=== PATIENT | female | born 1990 | race Asian ===

== ENCOUNTER 2019-04-14 17:51 | Emergency (ER) | payer MEDICAID ==
[~2019-04-14] VITALS: Ht 165.1 cm; Wt 77.1 kg
--- NOTE | 2019-04-14 18:00 | NUR ---
receved pt 29 yrs old female c/o sore throt for 2 days unable took and coughing for [address] rush to x ray no distress hob elevated
[2019-04-14 18:56] LABS: *MONOTEST NEGATIVE (NEGATIVE)
--- NOTE | 2019-04-14 19:00 | NUR ---
dineses sob or respratory distress at this time
--- NOTE | 2019-04-14 19:54 | NUR ---
Patient discharged to home in stable conditon. Written and verbal after care instructions given. Patient verbalizes understanding of instructions. patient alert and oriente x4. Patient self ambulatory with steady gait. Exit care and personal belongings taken with patient at discharge.
[2019-04-14 19:55] VITALS: BP 112/66
== END 2019-04-14 19:57 | disposition home or self-care (01) ==
LOC: ER 17:55
DX: J02.8 Acute pharyngitis due to other specified organisms (principal); B97.89 Other viral agents as the cause of diseases classified elsewhere
CPT/HCPCS: 36415; 70360; 86308; 86403; 87070; A4663

== ENCOUNTER 2019-04-17 11:57 | Emergency (ER) | payer MEDICAID ==
[~2019-04-17] VITALS: Ht 165.1 cm; Wt 77.1 kg
[2019-04-17] MEDS ORDERED: AZITHROMYCIN 250 MG TABLET ONE (12:44)
[2019-04-17] MEDS ORDERED: AZITHROMYCIN 250 MG TABLET PO ONE (12:45)
--- NOTE | 2019-04-17 12:46 | NUR ---
Patient discharged to home in stable conditon. Written and verbal after care instructions given. Patient verbalizes understanding of instructions.
[2019-04-17] MEDS ORDERED: HYDROMORPHONE 1 MG/1 ML DISP.SYRIN IV ONE (13:00)
[2019-04-17] MEDS ORDERED: diphenhydrAMINE 50 MG/1 ML VIAL IV ONE (13:00)
[2019-04-17] MEDS ORDERED: ONDANSETRON 4 MG/2 ML VIAL IV ONE (13:00)
== END 2019-04-17 12:51 | disposition home or self-care (01) ==
LOC: ER 11:58
DX: J06.9 Acute upper respiratory infection, unspecified (principal)
CPT/HCPCS: A4663; Q0144

== ENCOUNTER 2020-05-27 10:04 | Emergency (ER) | payer MEDICAID ==
[~2020-05-27] VITALS: Ht 167.6 cm; Wt 81.6 kg
[2020-05-27] MEDS ORDERED: TDAP DIPH,PERTUSS,TET VAC/PF 0.5 ML DISP.SYRIN IM ONE ×2 (10:45→11:28)
[2020-05-27] MEDS ORDERED: LIDOCAINE HCL 2% 20 ML VIAL TP ONE (10:45)
[2020-05-27] MEDS ORDERED: LIDOCAINE HCL 2% 20 ML VIAL ONE (10:54)
--- NOTE | 2020-05-27 11:21 | NUR ---
CHAPERONED MD WITH THE CYST I@D, PT TOLERATED WELL.
--- NOTE | 2020-05-27 11:32 | NUR ---
Patient discharged to home in stable condition. Written and verbal after care instructions given. Patient verbalizes understanding of instructions. Stressed follow up or return to ER for worsening s/s.
== END 2020-05-27 11:34 | disposition home or self-care (01) ==
LOC: ER 10:04
DX: N75.1 Abscess of Bartholin's gland (principal)
CPT/HCPCS: 56420; 90471; 90715; 99283; J3490; A4217; A4663

== ENCOUNTER 2020-08-02 20:24 | Emergency (ER) | payer MEDICAID ==
[~2020-08-02] VITALS: Ht 162.6 cm; Wt 77.1 kg
--- NOTE | 2020-08-02 20:58 | NUR ---
Pt provided urine sample, sent to lab.
[2020-08-02] MEDS ORDERED: FLUCONAZOLE 100 MG TABLET PO ONE (21:15)
[2020-08-02] MEDS ORDERED: ONDANSETRON ODT 4 MG TAB.RAPDIS SL ONE (21:15)
[2020-08-02] MEDS ORDERED: AZITHROMYCIN 250 MG TABLET PO ONE (21:15)
[2020-08-02] MEDS ORDERED: CEFTRIAXONE 1 G VIAL IM ONE (21:15)
[2020-08-02] MEDS ORDERED: ONDANSETRON ODT 4 MG TAB.RAPDIS ONE (21:20)
[2020-08-02] MEDS ORDERED: AZITHROMYCIN 250 MG TABLET ONE (21:20)
[2020-08-02] MEDS ORDERED: FLUCONAZOLE 100 MG TABLET ONE (21:21)
[2020-08-02] MEDS ORDERED: CEFTRIAXONE 1 G VIAL ONE (21:21)
--- NOTE | 2020-08-02 21:33 | NUR ---
Dr. Quinteros performing pelvic exam chaperroned by MARTHA Busby.
--- NOTE | 2020-08-02 21:33 | NUR ---
Michael reyes in [facility] - 08/02/20 at 2144 by CLAUDETTE Patient performing pelvic exam with female chapperone at bedside.
[2020-08-02 22:50] VITALS: BP 132/80
--- NOTE | 2020-08-02 22:50 | NUR ---
Patient discharged to home in stable condition. Written and verbal after care instructions given. Patient verbalizes understanding of instructions. Stressed follow up or return to ER for worsening s/s. Patient ambulates without difficulty, left with all belongings.
== END 2020-08-02 22:50 | disposition home or self-care (01) ==
LOC: ER 20:29
DX: N89.8 Other specified noninflammatory disorders of vagina (principal); Z20.2 Contact with and (suspected) exposure to infections with a predominantly sexual mode of transmission
CPT/HCPCS: 87086; 87210; 87491; 96372; 99284; J0696; A4663; Q0144; Q0162

== ENCOUNTER 2020-08-19 10:41 | Emergency (ER) | payer MEDICAID ==
[~2020-08-19] VITALS: Ht 162.6 cm; Wt 77.1 kg
[2020-08-19 11:22] LABS: *BILIRUBIN,URIN NEGATIVE (NEGATIVE); *BLOOD, URINE NEGATIVE (NEGATIVE); *CLARITY,URINE CLEAR (CLEAR); *COLOR,URINE YELLOW (YELLOW); *KETONES,URINE NEGATIVE (NEGATIVE); *UROBILINOGEN,URINE 0.2 E.U./dl (NORMAL); LEUKOCYTE ESTERASE ,URINE NEGATIVE (NEGATIVE); NITRITE, URINE NEGATIVE (NEGATIVE); UGLUCOSE NEGATIVE (NEGATIVE)
[2020-08-19 11:32] LABS: *URINE HCG, QUAL NEG (NEGATIVE)
[2020-08-19] MEDS ORDERED: DOXY100T2 PO (13:14)
[2020-08-19] MEDS ORDERED: FLUC150T PO (13:14)
[2020-08-19] MEDS ORDERED: CEFTRIAXONE 1 G VIAL IM ONE (13:15)
[2020-08-19] MEDS ORDERED: LIDOCAINE HCL 1% 20 ML VIAL ONE (13:19)
[2020-08-19] MEDS ORDERED: CEFTRIAXONE 1 G VIAL ONE (13:19)
== END 2020-08-19 13:29 | disposition home or self-care (01) ==
LOC: ER 10:41
DX: N76.0 Acute vaginitis (principal)
CPT/HCPCS: 36415; 81003; 84703; 86592; 87210; 87491; 96372; 99283; J0696; J3490; A4663

== ENCOUNTER 2020-08-26 02:09 | Emergency (ER) | payer MEDICAID ==
[~2020-08-26] VITALS: Ht 162.6 cm; Wt 86.2 kg
[~2020-08-26 02:09] MED LIST: DOXY100T2 PO; FLUC150T PO
--- NOTE | 2020-08-26 02:15 | NUR ---
Pt presents to ER with c/o of urinary frequency. Placed in Bed 5A. No acute distress noted, seen and examined by Dr. Lea. Urine collected and sent to lab.
[2020-08-26 02:26] LABS: *BILIRUBIN,URIN NEGATIVE (NEGATIVE); *BLOOD, URINE NEGATIVE (NEGATIVE); *CLARITY,URINE CLEAR (CLEAR); *COLOR,URINE YELLOW (YELLOW); *KETONES,URINE NEGATIVE (NEGATIVE); *UROBILINOGEN,URINE 0.2 E.U./dl (NORMAL); LEUKOCYTE ESTERASE ,URINE NEGATIVE (NEGATIVE); NITRITE, URINE NEGATIVE (NEGATIVE); PH,URINE 5.5 (5.0-8.0); UGLUCOSE NEGATIVE (NEGATIVE)
[2020-08-26 02:35] LABS: *URINE HCG, QUAL NEGATIVE (NEGATIVE)
[2020-08-26 02:56] LABS: BASOPHILS % (AUTO) 0.5 % (0.0-2.0); EOSINOPHILS # (AUTO) 0.3 K/uL (0.0-0.7); EOSINOPHILS % (AUTO) 2.7 % (0.0-7.0); HEMATOCRIT 41.1 % (31.2-41.9); HEMOGLOBIN 13.5 g/dL (10.9-14.3); LYMPHOCYTES # (AUTO) 3.5 K/uL (20.0-40.0); LYMPHOCYTES % (AUTO) 35.6 % (20.5-51.5); MEAN CORPUSCULAR HEMOGLOBIN 29.4 uug (24.7-32.8); MEAN CORPUSCULAR HGB CONC 33 g/dL (32.3-35.6); MEAN CORPUSCULAR VOLUME 89.4 fL (75.5-95.3); MONOCYTES # (AUTO) 0.7 K/uL (2.0-10.0); MONOCYTES % (AUTO) 7.3 % (0.0-11.0); NEUTROPHILS # (AUTO) 5.3 K/uL (1.8-8.9); NEUTROPHILS % (AUTO) 53.9 % (38.5-71.5); PLATELET COUNT (AUTO) 205 K/uL (179-408); RED BLOOD CELL COUNT(AUTO) 4.59 MIL/uL (3.63-4.92); WHITE BLOOD COUNT (AUTO) 9.8 K/uL (3.8-11.8)
[2020-08-26 03:06] LABS: BILIRUBIN,DIRECT 0.1 mg/dL (0.0-0.2); BILIRUBIN,TOTAL 0.2 mg/dL (0.2-1.0); CREATININE 0.8 mg/dL (0.6-1.3); POTASSIUM 3.8 mmol/L (3.5-5.1); TOTAL PROTEIN, SERUM 7.4 g/dL (6.4-8.2)
[2020-08-26] MEDS ORDERED: SULF-11 PO (04:28)
[2020-08-26] MEDS: SULFAMETH/TRIMETH 800/160 MG TABLET PO ONE (04:31)
[2020-08-26] MEDS ORDERED: SULFAMETH/TRIMETH 800/160 MG TABLET ONE (04:35)
--- NOTE | 2020-08-26 04:35 | NUR ---
Per Dr. Lea, pt stable for discharge. DC instructions and rx given and reviewed with patient. Verbalized understanding. Left ER in stable condition.
== END 2020-08-26 04:37 | disposition home or self-care (01) ==
LOC: ER 02:14
DX: N39.0 Urinary tract infection, site not specified (principal); E78.00 Pure hypercholesterolemia, unspecified
CPT/HCPCS: 36415; 83690; 84703; 85025; 85730; A4663

== ENCOUNTER 2020-09-06 13:21 | Emergency (ER) | payer MEDICAID ==
[~2020-09-06] VITALS: Ht 162.6 cm; Wt 88.5 kg
[~2020-09-06 13:21] MED LIST changes: +SULF-11 PO
--- NOTE | 2020-09-06 13:32 | NUR ---
at bedside for assessment
[2020-09-06 14:10] LABS: *URINE HCG, QUAL NEG (NEGATIVE)
[2020-09-06] MEDS ORDERED: KETOROLAC TROMETHAMINE 15 MG INJ ONE ×2 (14:14→15:38)
[2020-09-06] MEDS ORDERED: PHENAZOPYRIDINE HCL 100 MG TABLET PO ONE (14:15)
[2020-09-06] MEDS ORDERED: PHENAZOPYRIDINE HCL 100 MG TABLET ONE (14:15)
[2020-09-06] MEDS ORDERED: KETOROLAC TROMETHAMINE 15 MG INJ IM ONE (14:15)
[2020-09-06 14:16] LABS: *BILIRUBIN,URIN NEGATIVE (NEGATIVE); *BLOOD, URINE NEGATIVE (NEGATIVE); *CLARITY,URINE CLEAR (CLEAR); *COLOR,URINE YELLOW (YELLOW); *KETONES,URINE 1+ (NEGATIVE); *UROBILINOGEN,URINE 0.2 E.U./dl (NORMAL); LEUKOCYTE ESTERASE ,URINE TRACE (NEGATIVE); NITRITE, URINE NEGATIVE (NEGATIVE); PH,URINE 5.5 (5.0-8.0); UGLUCOSE NEGATIVE (NEGATIVE)
--- NOTE | 2020-09-06 14:27 | NUR ---
Patient being transported to radiology for CT
[2020-09-06 14:28] LABS: BASOPHILS % (AUTO) 0.4 % (0.0-2.0); EOSINOPHILS # (AUTO) 0.2 K/uL (0.0-0.7); EOSINOPHILS % (AUTO) 1.8 % (0.0-7.0); HEMATOCRIT 43.4 % (31.2-41.9); HEMOGLOBIN 14.8 g/dL (10.9-14.3); LYMPHOCYTES % (AUTO) 28.6 % (20.5-51.5); MEAN CORPUSCULAR HEMOGLOBIN 30.3 uug (24.7-32.8); MEAN CORPUSCULAR HGB CONC 34 g/dL (32.3-35.6); MEAN CORPUSCULAR VOLUME 88.8 fL (75.5-95.3); MONOCYTES # (AUTO) 0.6 K/uL (2.0-10.0); NEUTROPHILS # (AUTO) 6.5 K/uL (1.8-8.9); NEUTROPHILS % (AUTO) 63.2 % (38.5-71.5); PLATELET COUNT (AUTO) 229 K/uL (179-408); RED BLOOD CELL COUNT(AUTO) 4.89 MIL/uL (3.63-4.92); WHITE BLOOD COUNT (AUTO) 10.4 K/uL (3.8-11.8)
[2020-09-06 14:36] LABS: CREATININE 0.8 mg/dL (0.6-1.3); POTASSIUM 3.6 mmol/L (3.5-5.1)
[2020-09-06 14:42] LABS: BILIRUBIN,DIRECT 0.1 mg/dL (0.0-0.2); BILIRUBIN,TOTAL 0.5 mg/dL (0.2-1.0); TOTAL PROTEIN, SERUM 8.3 g/dL (6.4-8.2)
--- NOTE | 2020-09-06 14:44 | NUR ---
Patient returned from Radiology department
[2020-09-06] MEDS ORDERED: PHEN-704 PO (15:30)
--- NOTE | 2020-09-06 15:56 | NUR ---
Patient discharged to home in stable condition. able to amblate with steady gait. Written and verbal after care instructions given. took all belongings. No signs of acute distress. Patient verbalizes understanding of instructions. Stressed follow up or return to ER for worsening s/s.
[2020-09-06] MEDS ORDERED: KETOROLAC TROMETHAMINE 15 MG INJ IVP ONE (16:00)
--- NOTE | 2020-09-06 16:08 | NUR ---
Gave pt sandwich tray.
--- NOTE | 2020-09-06 16:09 | NUR ---
Patient discharged to home in stable condition. Able to ambulate with steady gait. took all belongings, no signs of acute distress. Written and verbal after care instructions given. Patient verbalizes understanding of instructions. Stressed follow up or return to ER for worsening s/s.
[2020-09-06 16:11] VITALS: BP 120/79
[2020-09-06 16:24] LABS: BACTERIA,URINE FEW /HPF (NONE SEEN); RBC,URINE 0-3 /HPF (0-3)
[2020-09-06 16:25] LABS: SQUAMOUS EPITHELIAL CELL,UR MODERATE /HPF (NONE SEEN)
== END 2020-09-06 16:00 | disposition home or self-care (01) ==
LOC: ER 13:21
DX: R10.2 Pelvic and perineal pain (principal); R39.15 Urgency of urination; R30.0 Dysuria
CPT/HCPCS: 36415; 74176; 80048; 80076; 81001; 84703; 85025; 87086; 96374; 99284; J1885; A4663

== ENCOUNTER 2020-09-13 10:50 | Emergency (ER) | payer MEDICAID ==
[~2020-09-13] VITALS: Ht 162.6 cm; Wt 81.6 kg
[~2020-09-13 10:50] MED LIST changes: +PHEN-704 PO
[2020-09-13 11:18] LABS: *BILIRUBIN,URIN NEGATIVE (NEGATIVE); *BLOOD, URINE NEGATIVE (NEGATIVE); *CLARITY,URINE CLEAR (CLEAR); *COLOR,URINE YELLOW (YELLOW); *KETONES,URINE NEGATIVE (NEGATIVE); *UROBILINOGEN,URINE 0.2 E.U./dl (NORMAL); LEUKOCYTE ESTERASE ,URINE TRACE (NEGATIVE); NITRITE, URINE NEGATIVE (NEGATIVE); PH,URINE 7.5 (5.0-8.0); UGLUCOSE NEGATIVE (NEGATIVE)
[2020-09-13 11:22] LABS: *URINE HCG, QUAL NEGATIVE (NEGATIVE)
[2020-09-13 11:31] LABS: BACTERIA,URINE FEW /HPF (NONE SEEN); RBC,URINE 0-3 /HPF (0-3); SQUAMOUS EPITHELIAL CELL,UR MODERATE /HPF (NONE SEEN); URINE AMORPHOUS PHOSPHATES FEW /HPF
[2020-09-13] MEDS ORDERED: CEPH500C2 PO (11:36)
[2020-09-13] MEDS ORDERED: CEphaleXIN 500 MG CAPSULE PO ONE (11:45)
--- NOTE | 2020-09-13 11:47 | NUR ---
Patient discharged to home in stable condition. Written and verbal after care instructions given. Patient verbalizes understanding of instructions. Stressed follow up or return to ER for worsening s/s. Patient instructed to complete entire course of prescribed antibiotic.
[2020-09-13 11:49] VITALS: BP 121/75
[2020-09-13] MEDS ORDERED: CEphaleXIN 500 MG CAPSULE ONE (11:50)
== END 2020-09-13 11:43 | disposition home or self-care (01) ==
LOC: ER 10:50
DX: N39.0 Urinary tract infection, site not specified (principal); E78.5 Hyperlipidemia, unspecified
CPT/HCPCS: 84703; 87086; A4663

== ENCOUNTER 2020-10-04 21:13 | Emergency (ER) | payer MEDICAID ==
[~2020-10-04] VITALS: Ht 162.6 cm; Wt 81.6 kg
[~2020-10-04 21:13] MED LIST changes: +CEPH500C2 PO
[2020-10-04 21:40] LABS: *BILIRUBIN,URIN NEGATIVE (NEGATIVE); *BLOOD, URINE NEGATIVE (NEGATIVE); *COLOR,URINE YELLOW (YELLOW); *KETONES,URINE NEGATIVE (NEGATIVE); *UROBILINOGEN,URINE 0.2 E.U./dl (NORMAL); LEUKOCYTE ESTERASE ,URINE NEGATIVE (NEGATIVE); NITRITE, URINE NEGATIVE (NEGATIVE); PH,URINE 7.5 (5.0-8.0); UGLUCOSE NEGATIVE (NEGATIVE)
[2020-10-04 21:43] LABS: *CLARITY,URINE HAZY (CLEAR); *URINE HCG, QUAL NEGATIVE (NEGATIVE)
[2020-10-04 21:55] LABS: BACTERIA,URINE NONE SEEN /HPF (NONE SEEN); RBC,URINE 0-3 /HPF (0-3); SQUAMOUS EPITHELIAL CELL,UR FEW /HPF (NONE SEEN); URINE AMORPHOUS PHOSPHATES FEW /HPF; WBC,URINE 0-3 /HPF (0-3)
--- NOTE | 2020-10-04 22:09 | NUR ---
Dr. Quinteros at bedside for MSE, chapperoned by Marija THOMAS Nurse Glove Machine Operator.
--- NOTE | 2020-10-04 22:23 | NUR ---
Patient discharged to home in stable condition. Written and verbal after care instructions given. Patient verbalizes understanding of instructions. Stressed follow up or return to ER for worsening s/s. Patient out of ER with steady gait, no acute signs of distress, VSS, all belongings taken, provided with copies of lab results.
[2020-10-04 22:24] VITALS: BP 119/70
== END 2020-10-04 22:25 | disposition home or self-care (01) ==
LOC: ER 21:13
DX: R30.0 Dysuria (principal); G89.29 Other chronic pain; E78.5 Hyperlipidemia, unspecified; Z87.74 Personal history of (corrected) congenital malformations of heart and circulatory system; R23.8 Other skin changes
CPT/HCPCS: 84703; 87086; A4663

== ENCOUNTER 2021-03-23 19:56 | Emergency (ER) | payer BC, MEDICAID ==
[~2021-03-23] VITALS: Ht 162.6 cm; Wt 81.6 kg
--- NOTE | 2021-03-23 20:10 | NUR ---
PATIENT WAS MSE BY DR LEBRON IN ROOM 05A.
[2021-03-23] MEDS ORDERED: IV NORMAL SALINE 1000 ML BAG IV ONE (20:15)
[2021-03-23] MEDS ORDERED: ONDANSETRON 4 MG/2 ML VIAL IV ONE (20:15)
[2021-03-23] MEDS ORDERED: ONDANSETRON 4 MG/2 ML VIAL ONE (20:23)
[2021-03-23 20:35] LABS: *BILIRUBIN,URIN 1+ (NEGATIVE); *BLOOD, URINE 3+ (NEGATIVE); *COLOR,URINE DARK YELLOW (YELLOW); *KETONES,URINE 2+ (NEGATIVE); *UROBILINOGEN,URINE 0.2 E.U./dl (NORMAL); LEUKOCYTE ESTERASE ,URINE NEGATIVE (NEGATIVE); NITRITE, URINE NEGATIVE (NEGATIVE); PH,URINE 8.5 (5.0-8.0); UGLUCOSE NEGATIVE (NEGATIVE)
[2021-03-23 20:43] LABS: *CLARITY,URINE SLIGHTLY CLOUDY (CLEAR)
[2021-03-23 20:44] LABS: BACTERIA,URINE MANY /HPF (NONE SEEN); RBC,URINE 20-50 /HPF (0-3); SQUAMOUS EPITHELIAL CELL,UR MANY /HPF (NONE SEEN)
[2021-03-23 20:45] LABS: *URINE HCG, QUAL NEGATIVE (NEGATIVE)
[2021-03-23] MEDS ORDERED: LIDOCAINE VISCUS 2% 15 ML UDC MM ONE (20:45)
[2021-03-23] MEDS ORDERED: MAG HYDROX/AL HYDROX/SIMETH 30 ML LIQUID UDC PO ONE (20:45)
[2021-03-23 20:52] LABS: HEMATOCRIT 40.5 % (31.2-41.9); MEAN CORPUSCULAR HEMOGLOBIN 30.5 uug (24.7-32.8); MEAN CORPUSCULAR VOLUME 89.3 fL (75.5-95.3); PLATELET COUNT (AUTO) 221 K/uL (179-408)
[2021-03-23] MEDS ORDERED: MAG HYDROX/AL HYDROX/SIMETH 30 ML LIQUID UDC ONE (20:53)
[2021-03-23] MEDS ORDERED: LIDOCAINE VISCUS 2% 15 ML UDC ONE (20:53)
[2021-03-23 20:57] LABS: CARBON DIOXIDE 23 mmol/L (21-32); CHLORIDE 107 mmol/L (98-107); CREATININE 0.7 mg/dL (0.6-1.3); GLUCOSE 112 mg/dL (74-106); POTASSIUM 3.3 mmol/L (3.5-5.1); UREA NITROGEN, BLOOD 10 mg/dL (7-18)
[2021-03-23 21:03] LABS: ALANINE AMINOTRANSFERASE 17 U/L (14-59); ALKALINE PHOSPHATASE 72 U/L (50-136); ASPARTATE AMINOTRANSFERASE 14 U/L (15-37); BILIRUBIN,TOTAL 0.4 mg/dL (0.2-1.0); TOTAL PROTEIN, SERUM 7.7 g/dL (6.4-8.2)
[2021-03-23 21:04] LABS: ETHANOL < 3 MG/DL (0-0)
[2021-03-23] MEDS ORDERED: POTASSIUM BICARBONATE/CIT AC 25 MEQ TABLET.EFF PO ONE (21:15)
[2021-03-23] MEDS ORDERED: POTASSIUM BICARBONATE/CIT AC 25 MEQ TABLET.EFF ONE (21:25)
[2021-03-23 21:46] VITALS: BP 131/63
== END 2021-03-23 21:47 | disposition home or self-care (01) ==
LOC: ER 19:57
DX: R11.2 Nausea with vomiting, unspecified (principal); E87.6 Hypokalemia; E78.00 Pure hypercholesterolemia, unspecified
CPT/HCPCS: 36415; 80053; 80320; 81001; 84702; 84703; 85025; 87086; 93005; 96361; 96374; 99284; J2405; A4663; G0480; J7030

== ENCOUNTER 2022-05-21 17:30 | Emergency (ER) | payer BC, MEDICAID ==
[~2022-05-21] VITALS: Ht 162.6 cm; Wt 81.6 kg
--- NOTE | 2022-05-21 17:59 | NUR ---
Dr Quinteros at the bedside for MSE.
[2022-05-21] MEDS ORDERED: IBUP-1955 PO (18:15)
[2022-05-21] MEDS ORDERED: ONDA4TAB5 PO (18:15)
[2022-05-21] MEDS ORDERED: BENZ-13 PO (18:15)
[2022-05-21] MEDS ORDERED: KETOROLAC TROMETHAMINE 15 MG INJ IM ONE (18:15)
[2022-05-21] MEDS ORDERED: KETOROLAC TROMETHAMINE 15 MG INJ ONE (18:23)
--- NOTE | 2022-05-21 18:27 | NUR ---
COVID and FLU swabs collected and sent to Lab.
[2022-05-21 20:44] VITALS: BP 125/66
== END 2022-05-21 20:45 | disposition home or self-care (01) ==
LOC: ER 17:30
DX: J06.9 Acute upper respiratory infection, unspecified (principal); B97.89 Other viral agents as the cause of diseases classified elsewhere; Z20.822 Contact with and (suspected) exposure to COVID-19
CPT/HCPCS: 99283; 87400; 36415; 96372; U0003; C9803; J1885; A4663

== ENCOUNTER 2023-09-20 21:17 | Emergency (ER) | payer MEDICAID ==
[~2023-09-20] VITALS: Ht 162.6 cm; Wt 81.6 kg
[~2023-09-20 21:17] MED LIST changes: +BENZ-13 PO; +IBUP-1955 PO; +ONDA4TAB5 PO
[2023-09-20 22:37] VITALS: BP 110/72; TEMP 98.2; O2SAT 98
== END 2023-09-20 22:37 | disposition home or self-care (01) ==
LOC: ER 21:18
DX: J02.9 Acute pharyngitis, unspecified (principal); E78.00 Pure hypercholesterolemia, unspecified; Z98.890 Other specified postprocedural states; Z79.899 Other long term (current) drug therapy; Z20.822 Contact with and (suspected) exposure to COVID-19
CPT/HCPCS: A4606; A4663

== ENCOUNTER 2023-11-07 13:37 | Emergency (ER) | payer MEDICAID ==
[~2023-11-07] VITALS: Ht 162.6 cm; Wt 81.6 kg
[2023-11-07] MEDS ORDERED: AMOX-430 PO (14:04)
[2023-11-07 14:16] VITALS: BP 118/65; TEMP 208; O2SAT 99
== END 2023-11-07 14:18 | disposition home or self-care (01) ==
LOC: ER 13:38
DX: N75.0 Cyst of Bartholin's gland (principal); E78.00 Pure hypercholesterolemia, unspecified; Z98.890 Other specified postprocedural states; Z79.899 Other long term (current) drug therapy
CPT/HCPCS: A4606; A4663

== ENCOUNTER 2023-12-21 21:07 | Emergency (ER) | payer MEDICAID ==
[~2023-12-21] VITALS: Ht 162.6 cm; Wt 81.6 kg
[~2023-12-21 21:07] MED LIST changes: +AMOX-430 PO
[2023-12-21] MEDS ORDERED: DICYCLOMINE HCL LIQ 10 MG/5 ML UDC ONE (22:48)
[2023-12-21] MEDS ORDERED: LOPERAMIDE HCL 2 MG CAPSULE ONE (22:48)
[2023-12-21 22:59] LABS: CALCIUM 9.4 mg/dL (8.5-10.1); CARBON DIOXIDE 26 mmol/L (21-32); CHLORIDE 103 mmol/L (98-107); CREATININE 0.7 mg/dL (0.6-1.3); GLUCOSE 102 mg/dL (74-106); POTASSIUM 3.8 mmol/L (3.5-5.1); SODIUM SERUM 139 mmol/L (136-145); UREA NITROGEN, BLOOD 12 mg/dL (7-18)
[2023-12-21] MEDS: DICYCLOMINE HCL LIQ 10 MG/5 ML UDC PO ONE (23:00)
[2023-12-21] MEDS: LOPERAMIDE HCL 2 MG CAPSULE PO ONE (23:00)
[2023-12-21 23:03] LABS: BASOPHILS % (AUTO) 0.3 % (0.0-2.0); EOSINOPHILS # (AUTO) 0.1 K/uL (0.0-0.7); EOSINOPHILS % (AUTO) 0.4 % (0.0-7.0); HEMOGLOBIN 13.8 g/dL (10.9-14.3); LYMPHOCYTES % (AUTO) 8.2 % (20.5-51.5); MEAN CORPUSCULAR HEMOGLOBIN 29.2 uug (24.7-32.8); MEAN CORPUSCULAR HGB CONC 33 g/dL (32.3-35.6); MEAN CORPUSCULAR VOLUME 88.7 fL (75.5-95.3); MONOCYTES # (AUTO) 0.3 K/uL (0.1-1.30); MONOCYTES % (AUTO) 2.3 % (0.0-11.0); NEUTROPHILS # (AUTO) 11.3 K/uL (1.8-8.9); NEUTROPHILS % (AUTO) 88.8 % (38.5-71.5); PLATELET COUNT (AUTO) 231 K/uL (179-408); RED BLOOD CELL COUNT(AUTO) 4.73 MIL/uL (3.63-4.92); RED CELL DISTRIBUTION WIDTH 12.9 % (12.3-17.7); WHITE BLOOD COUNT (AUTO) 12.8 K/uL (3.8-11.8)
[2023-12-21 23:05] LABS: ALANINE AMINOTRANSFERASE 22 U/L (14-59); ALBUMIN 3.8 g/dL (3.4-5.0); ALKALINE PHOSPHATASE 84 U/L (50-136); ASPARTATE AMINOTRANSFERASE 9 U/L (15-37); BILIRUBIN,DIRECT 0.1 mg/dL (0.0-0.2); BILIRUBIN,TOTAL 0.3 mg/dL (0.2-1.0); LIPASE 29 U/L (16-77); TOTAL PROTEIN, SERUM 7.8 g/dL (6.4-8.2)
[2023-12-21 23:18] LABS: PREGNANCY TEST SERUM QUAN < 1 miul/L (0-6)
[2023-12-21] MEDS ORDERED: SWABABLE VALVE TRANSFER SET EA MC ONE (23:21)
[2023-12-21] MEDS ORDERED: IV NORMAL SALINE 250 ML IV ONE (23:21)
[2023-12-21] MEDS ORDERED: IOHEXOL 300MG/ML 100 ML INFUS..BTL ONE (23:21)
[2023-12-21] MEDS ORDERED: LOPE2CAP40 PO (23:26)
[2023-12-21] MEDS ORDERED: DICY20TA11 PO (23:26)
[2023-12-22] MEDS ORDERED: FLUC200T PO (00:14)
[2023-12-22] MEDS ORDERED: AMOX-430 PO (00:14)
[2023-12-22] MEDS: AMOXICILLIN-CLAVUL 875-125MG TABLET PO ONE (00:25)
[2023-12-22] MEDS ORDERED: AMOXICILLIN-CLAVUL 875-125MG TABLET ONE (00:30)
[2023-12-22 00:42] VITALS: BP 124/73; TEMP 98.7; O2SAT 97
== END 2023-12-22 00:30 | disposition home or self-care (01) ==
LOC: ER 21:09
DX: K52.9 Noninfective gastroenteritis and colitis, unspecified (principal); R10.9 Unspecified abdominal pain; R10.2 Pelvic and perineal pain; Z79.1 Long term (current) use of non-steroidal anti-inflammatories (NSAID); Z98.890 Other specified postprocedural states; Z79.899 Other long term (current) drug therapy
CPT/HCPCS: 99284; 74176; 80076; 80048; 83690; 85025; 84702; 36415; Q9967; A4606; A4663

== ENCOUNTER 2024-02-05 13:53 | Emergency (ER) | payer MEDICAID ==
[~2024-02-05] VITALS: Ht 162.6 cm; Wt 81.6 kg
[~2024-02-05 13:53] MED LIST changes: +DICY20TA11 PO; +FLUC200T PO; +LOPE2CAP40 PO
[2024-02-05 14:06] VITALS: O2SAT 97
[2024-02-05 14:39] LABS: *BILIRUBIN,URIN 1+ (NEGATIVE); *BLOOD, URINE NEGATIVE (NEGATIVE); *CLARITY,URINE SLIGHTLY CLOUDY (CLEAR); *COLOR,URINE DARK YELLOW (YELLOW); *KETONES,URINE 3+ (NEGATIVE); *PROTEIN,URINE 1+ (NEGATIVE); LEUKOCYTE ESTERASE ,URINE 1+ (NEGATIVE); NITRITE, URINE NEGATIVE (NEGATIVE); UGLUCOSE NEGATIVE (NEGATIVE)
[2024-02-05 14:40] LABS: *URINE HCG, QUAL NEGATIVE (NEGATIVE)
[2024-02-05] MEDS ORDERED: ONDANSETRON 4 MG/2 ML VIAL ONE (14:49)
[2024-02-05] MEDS ORDERED: HYDROMORPHONE 1 MG/1 ML DISP.SYRIN ONE (14:49)
[2024-02-05] MEDS: ONDANSETRON 4 MG/2 ML VIAL IV ONE (14:50)
[2024-02-05] MEDS: IV NORMAL SALINE 1000 ML BAG IV ONE (14:50)
[2024-02-05] MEDS: HYDROMORPHONE 1 MG/1 ML DISP.SYRIN IV ONE (14:51)
[2024-02-05 15:03] LABS: BASOPHILS % (AUTO) 0.2 % (0.0-2.0); EOSINOPHILS # (AUTO) 0.1 K/uL (0.0-0.7); EOSINOPHILS % (AUTO) 1.1 % (0.0-7.0); HEMATOCRIT 42.7 % (31.2-41.9); LYMPHOCYTES # (AUTO) 2.7 K/uL (0.8-4.8); LYMPHOCYTES % (AUTO) 34.7 % (20.5-51.5); MEAN CORPUSCULAR HEMOGLOBIN 29.1 uug (24.7-32.8); MEAN CORPUSCULAR HGB CONC 33 g/dL (32.3-35.6); MEAN CORPUSCULAR VOLUME 88.5 fL (75.5-95.3); MONOCYTES # (AUTO) 0.7 K/uL (0.1-1.30); MONOCYTES % (AUTO) 8.6 % (0.0-11.0); NEUTROPHILS # (AUTO) 4.3 K/uL (1.8-8.9); NEUTROPHILS % (AUTO) 55.4 % (38.5-71.5); PLATELET COUNT (AUTO) 247 K/uL (179-408); RED BLOOD CELL COUNT(AUTO) 4.83 MIL/uL (3.63-4.92); RED CELL DISTRIBUTION WIDTH 13.2 % (12.3-17.7); WHITE BLOOD COUNT (AUTO) 7.8 K/uL (3.8-11.8)
[2024-02-05 15:08] LABS: DIFFERENTIAL COMMENT 1
[2024-02-05 15:18] LABS: CALCIUM 9.3 mg/dL (8.5-10.1); CREATININE 0.7 mg/dL (0.6-1.3); POTASSIUM 3.4 mmol/L (3.5-5.1)
[2024-02-05 15:23] LABS: ALBUMIN 3.8 g/dL (3.4-5.0); BILIRUBIN,DIRECT 0.2 mg/dL (0.0-0.2); BILIRUBIN,TOTAL 0.6 mg/dL (0.2-1.0); TOTAL PROTEIN, SERUM 7.8 g/dL (6.4-8.2)
[2024-02-05] MEDS ORDERED: POTASSIUM BICARBONATE/CIT AC 25 MEQ TABLET.EFF ONE (16:14)
[2024-02-05] MEDS: POTASSIUM BICARBONATE/CIT AC 25 MEQ TABLET.EFF PO ONE (16:19)
[2024-02-05 16:32] LABS: BACTERIA,URINE FEW /HPF (NONE SEEN); RBC,URINE 0-3 /HPF (0-3); SQUAMOUS EPITHELIAL CELL,UR MANY /HPF (NONE SEEN)
== END 2024-02-05 16:39 | disposition home or self-care (01) ==
LOC: ER 13:54
DX: K59.00 Constipation, unspecified (principal); E86.0 Dehydration; K92.1 Melena; E87.6 Hypokalemia; R10.2 Pelvic and perineal pain; Z98.890 Other specified postprocedural states; Z79.899 Other long term (current) drug therapy
CPT/HCPCS: 36415; 74018; 83690; 84703; 85025; A4606; A4663; J1170; J2405; J7040

== ENCOUNTER 2024-10-23 07:18 | Emergency (ER) | payer MEDICAID, OTHER ==
[~2024-10-23] VITALS: Ht 162.6 cm; Wt 81.6 kg
[2024-10-23 09:08] LABS: BASOPHILS % (AUTO) 0.3 % (0.0-2.0); EOSINOPHILS # (AUTO) 0.1 K/uL (0.0-0.7); EOSINOPHILS % (AUTO) 0.8 % (0.0-7.0); HEMATOCRIT 41.4 % (31.2-41.9); HEMOGLOBIN 13.8 g/dL (10.9-14.3); LYMPHOCYTES # (AUTO) 1.8 K/uL (0.8-4.8); LYMPHOCYTES % (AUTO) 15.1 % (20.5-51.5); MEAN CORPUSCULAR HEMOGLOBIN 29.5 uug (24.7-32.8); MEAN CORPUSCULAR HGB CONC 33 g/dL (32.3-35.6); MEAN CORPUSCULAR VOLUME 88.8 fL (75.5-95.3); MONOCYTES # (AUTO) 0.8 K/uL (0.1-1.30); MONOCYTES % (AUTO) 6.8 % (0.0-11.0); NEUTROPHILS # (AUTO) 9.2 K/uL (1.8-8.9); PLATELET COUNT (AUTO) 204 K/uL (179-408); RED BLOOD CELL COUNT(AUTO) 4.66 MIL/uL (3.63-4.92); RED CELL DISTRIBUTION WIDTH 13.4 % (12.3-17.7); WHITE BLOOD COUNT (AUTO) 11.9 K/uL (3.8-11.8)
[2024-10-23 09:15] LABS: CALCIUM 9.3 mg/dL (8.5-10.1); CREATININE 0.7 mg/dL (0.6-1.3); DIFFERENTIAL COMMENT 1; POTASSIUM 3.6 mmol/L (3.5-5.1)
[2024-10-23] MEDS ORDERED: DOXY-326 PO (11:11)
[2024-10-23 11:25] VITALS: BP 115/60; TEMP 98.1; O2SAT 99
== END 2024-10-23 11:28 | disposition home or self-care (01) ==
LOC: ER 07:18
DX: J20.9 Acute bronchitis, unspecified (principal); R11.10 Vomiting, unspecified; Z88.7 Allergy status to serum and vaccine; Z86.79 Personal history of other diseases of the circulatory system; Z87.19 Personal history of other diseases of the digestive system; Z87.2 Personal history of diseases of the skin and subcutaneous tissue; Z20.822 Contact with and (suspected) exposure to COVID-19
CPT/HCPCS: 36415; 71045; 85025; 86403; 87070; A4606; A4663

== ENCOUNTER 2025-02-08 18:31 | Emergency (ER) | payer OTHER ==
[~2025-02-08] VITALS: Ht 162.6 cm; Wt 81.6 kg
[~2025-02-08 18:31] MED LIST changes: +DOXY-326 PO
[2025-02-08 18:41] VITALS: BP 135/65
[2025-02-08 20:20] VITALS: BP 122/69; TEMP 98; O2SAT 98
== END 2025-02-08 20:22 | disposition home or self-care (01) ==
LOC: ER 18:37
DX: J02.8 Acute pharyngitis due to other specified organisms (principal); B97.89 Other viral agents as the cause of diseases classified elsewhere; H92.01 Otalgia, right ear; R07.9 Chest pain, unspecified; R59.9 Enlarged lymph nodes, unspecified; Z88.7 Allergy status to serum and vaccine; Z20.822 Contact with and (suspected) exposure to COVID-19; Z86.79 Personal history of other diseases of the circulatory system; Z87.19 Personal history of other diseases of the digestive system; Z87.2 Personal history of diseases of the skin and subcutaneous tissue
CPT/HCPCS: 71045; A4606; A4663

== ENCOUNTER 2025-05-19 03:14 | Emergency (ER) | payer OTHER ==
[~2025-05-19] VITALS: Ht 162.6 cm; Wt 81.6 kg
[~2025-05-19 03:14] MED LIST changes: +AMOX-319 PO; -AMOX-430 PO; -DICY20TA11 PO; +DICY20TA13 PO; -DOXY-326 PO; +DOXY-461 PO; -IBUP-1955 PO; +IBUP600T51 PO
[2025-05-19 03:25] VITALS: BP 129/64
[2025-05-19] MEDS ORDERED: IBUP-2760 PO (03:51)
[2025-05-19] MEDS ORDERED: AMOXICILLIN-CLAVUL 875-125MG TABLET ONE (03:57)
[2025-05-19] MEDS: AMOXICILLIN-CLAVUL 875-125MG TABLET PO ONE (04:02)
[2025-05-19 04:06] VITALS: BP 129/64; TEMP 97.8; O2SAT 96
[2025-06-08] MEDS ORDERED: LIDOCAINE 2%-EPI 1:100,000 20 ML VIAL IJ ONE (07:00)
== END 2025-05-19 04:08 | disposition home or self-care (01) ==
LOC: ER 03:22
DX: I88.9 Nonspecific lymphadenitis, unspecified (principal); Z88.7 Allergy status to serum and vaccine
CPT/HCPCS: A4606; A4663